=== PATIENT | female | born 1960 | race Hispanic/Latino ===

== ENCOUNTER 2023-03-15 06:16 | Emergency (ER) | payer OTHER ==
[~2023-03-15] VITALS: Ht 129.5 cm; Wt 47.6 kg
[~2023-03-15 06:16] MED LIST: ATORVASTATIN CA20 MG PO; OMEPRAZOLE40 MG PO; PREGABALIN50 MG PO
[2023-03-15] MEDS ORDERED: LABETALOL HCL 5 MG/ML 20ML VIAL IV STA (06:26)
[2023-03-15 06:35] VITALS: PULSE 100
[2023-03-15] MEDS ORDERED: ONDANSETRON HCL INJ 2MG/ML 2ML 2 MG/ML VIAL IV STA (06:35)
[2023-03-15] MEDS ORDERED: ONDANSETRON HCL INJ 2MG/ML 2ML 2 MG/ML VIAL ONE (06:39)
[2023-03-15 06:43] LABS: BASOPHILS % 0.3 % (0.0-1.0); EOSINOPHILS % 0.5 % (0.0-6.0); HEMATOCRIT 30.9 % (34.2-44.1); HEMOGLOBIN 10.2 g/dL (12.0-16.0); LYMPHOCYTES # (AUTO) 1.4 (1.0-3.2); LYMPHOCYTES % 16.1 % (18.0-39.1); MEAN CORPUSCULAR VOLUME 90.9 fL (81-99); MONOCYTES # (AUTO) 0.4 (0.2-0.8); MONOCYTES % 4.4 % (4.4-11.3); NEUTROPHILS # (AUTO) 6.8 (2.1-6.9); NEUTROPHILS % 78.4 % (38.7-80.0); PLATELET COUNT 222 x10e3/uL (140-360); RED CELL DISTRIBUTION WIDTH 15.5 % (11.7-14.4); WHITE BLOOD COUNT 8.67 x10e3/uL (4.8-10.8)
[2023-03-15 06:57] LABS: ALBUMIN 3.8 g/dL (3.5-5.0); ALBUMIN/GLOBULIN RATIO 0.9 (0.8-2.0); ANION GAP 14.6 mmol/L (8-16); BILIRUBIN,TOTAL 0.4 mg/dL (0.2-1.2); CALCIUM 9.3 mg/dL (8.4-10.2); CREATININE, SERUM 2.33 mg/dL (0.57-1.11); POTASSIUM 3.6 mmol/L (3.5-5.1)
[2023-03-15] MEDS ORDERED: ACETAMINOPHEN 325 MG TAB PO ONE (08:00)
[2023-03-15] MEDS ORDERED: HYDRALAZINE HCL 20 MG/ML VIAL IV STA (08:15)
[2023-03-15] MEDS ORDERED: HYDRALAZINE HCL 20 MG/ML VIAL ONE (08:19)
[2023-03-15 08:27] VITALS: BP 199/111
[2023-03-15 09:55] VITALS: O2SAT 100
== END 2023-03-15 11:14 | disposition short-term general hospital (02) ==
LOC: ER 06:22
DX: I16.0 Hypertensive urgency (principal); R51.9 Headache, unspecified; R73.9 Hyperglycemia, unspecified; I12.0 Hypertensive chronic kidney disease with stage 5 chronic kidney disease or end stage renal disease; N18.6 End stage renal disease; Z99.2 Dependence on renal dialysis; R11.2 Nausea with vomiting, unspecified; J84.10 Pulmonary fibrosis, unspecified; Z11.52 Encounter for screening for COVID-19
CPT/HCPCS: 36415; 70450; 80053; 85025; 93005; 99285; J0360; J2405; J3490; U0002